=== PATIENT | female | born 1975 ===

== ENCOUNTER 2019-02-10 07:05 | Day surgery (SDC) | payer OTHER ==
[~2019-02-10] VITALS: Ht 175.3 cm; Wt 95.3 kg
[2019-02-10] VITALS (7 sets, daily range): BP systolic 145–154; BP diastolic 83–98
[~2019-02-10 07:05] MED LIST: FLOVENT2 PUFF1 INH; LYRICA75 M1 ORAL; SINGULAIR10 MG ORAL; WELLBUTRIN XL150 MG ORAL; ceFAZolin 1gm IVPB IVPB ONE; celeBREX 200mg Cap **SURGERY PATIENTS ONLY ORAL ONE; oxyCONTIN 20mg tab ORAL ONE
[2019-02-10] MEDS ORDERED: Tylenol #3 tab (300mg/30mg) ORAL PRN (07:15)
[2019-02-10] MEDS ORDERED: D5 1/2NS 1,000 ML IV SCH (07:15)
[2019-02-10] MEDS ORDERED: HYDROcodone/Acetamin 5/325 tab ORAL PRN (07:15)
[2019-02-10] MEDS ORDERED: HYDROmorphone 1mg/ml Carpuject SUBQ PRN (07:15)
--- NOTE | 2019-02-10 07:15 | Pre-Procedure Note/Attestation ---
Pre-Procedure Note/Attestation Complete Prior to Procedure Planned Procedure: left Procedure Narrative: knee arthroscopy, possible synovectomy, possible chondroplasty Indications for Procedure Pre-Operative Diagnosis: left knee internal derangment Attestation I attest that I discussed the nature of the procedure; its benefits; risks and complications; and alternatives (and the risks and benefits of such alternatives ), prior to the procedure, with the patient (or the patient's legal wine sales representative). I attest that, if there was a reasonable possibility of needing a blood transfusion, the patient (or the patient's legal wine sales representative) was given the [facility] standardized written summary, pursuant to the [place] Blood Safety Act ([place] Health and Safety Code # 1645, as amended). I attest that I re-evaluated the patient just prior to the surgery and that there has been no change in the patient's H&P, except as documented below: Sudhakar Sotomayor MD Feb 10, 2019 07:14
--- NOTE | 2019-02-10 07:15 | Operative Note - PDOC ---
Operative Note Operative Note Pre-op Diagnosis: left knee internal derangment Procedure: see op report Post-op Diagnosis: same as pre-op plus Operative Findings: consistent w/pre-op dx studies Anesthesia: general Specimen: none Complications: none Condition: stable Estimated Blood Loss: none Implant(s) used?: No Sudhakar Sotomayor MD Feb 10, 2019 07:15
[2019-02-10] MEDS ORDERED: PROAIR HFA8.5 GM INH (08:00)
[2019-02-10] MEDS ORDERED: oxyCONTIN 20mg tab ORAL ONE (08:04)
[2019-02-10] MEDS ORDERED: celeBREX 200mg Cap **SURGERY PATIENTS ONLY ORAL ONE (08:05)
--- NOTE | 2019-02-10 10:11 | Anethesia Preoperative Eval ---
Anesthesia Pre-op PMH/ROS General Date of Evaluation: Feb 10, 2019 Anesthesiologist: Ramiro ASA Score: ASA 2 Mallampati Score Class I : Soft palate, uvula, fauces, pillars visible Class II: Soft palate, uvula, fauces visible Class III: Soft palate, base of uvula visible Class IV: Only hard plate visible Mallampati Classification: Class III Surgeon: Bran Diagnosis: Left knee internal derangement Surgical Procedure: Left knee arthroscopy Anesthesia History: none Family History: no anesthesia problems Allergies: Coded Allergies: NUT - UNSPECIFIED (Verified Allergy, Severe, "throat closes -up", 02/09/19) all kinds of nuts as per patient PINEAPPLE (Verified Adverse Reaction, Intermediate, throat closes-up, 02/09) Medications: see eMAR Patient NPO?: Yes NPO Date: Feb 09, 2019 NPO Time: 22:00 Past Medical History Cardiovascular: Denies: HTN, CAD, [place], valve dz, arrhythmia, other Pulmonary: Reports: asthma; Denies: COPD, CHRISTY, other Gastrointestinal/Genitourinary: Denies: GERD, CRI, ESRD, other Neurologic/Psychiatric: Reports: depression/anxiety, other - fibromyalgia; Denies: dementia, CVA, TIA Endocrine: Denies: DM, hypothyroidism, steroids, other HEENT: Denies: cataract (L), cataract (R), glaucoma, MINTO (L), MINTO (R), other Hematology/Immune: Denies: anemia, DVT, bleeding disorder, other Musculoskeletal/Integumentary: Denies: OA, RA, DJD, DDD, edema, other Other: obesity PSxH Narrative: Left oophorectomy, BTL, B CTR, B UNL, right ovarian cystectomy Anesthesia Pre-op Phys. Exam Physician Exam Last Vital Signs Date Time Temp Pulse Resp B/P (MAP) Pulse Ox O2 Delivery O2 Flow Rate FiO2 02/10/19 07:55 Room Air 02/10/19 07:49 97.7 84 18 152/90 98 Constitutional: NAD Cardiovascular: RRR Respiratory: CTA Airway Exam Mallampati Score: Class III MO: limited Neck: short, obese TMD: 2FB ROM: limited Anesthesia Pre-op A/P Labs see chart Studies Pre-op Studies: EKG - sr Risk Assessment & Plan Assessment: ASA II Plan: GA Status Change Before Surgery: No Pre-Antibiotics Drug: Ancef 2g Given Within 1 Hr of Incision: Yes Claire Jewell MD Feb 10, 2019 10:11
[2019-02-10] MEDS ORDERED: Propofol 200mg/20ml IV ONE (10:45)
[2019-02-10] MEDS ORDERED: fentaNYL 100 mcg/2 mL IV ONE (10:45)
[2019-02-10] MEDS ORDERED: Lidocaine 1% MPF 10mg/ml 5ml ONE (10:45)
[2019-02-10] MEDS ORDERED: Midazolam 2mg/2ml Inj ONE (10:45)
[2019-02-10] MEDS ORDERED: EPINEPHrine 1mg/1ml Amp ONE (10:46)
[2019-02-10] MEDS ORDERED: Ketorolac 30mg Inj ONE (10:46)
[2019-02-10] MEDS ORDERED: Dexamethasone 4mg/ml vial ONE (10:46)
[2019-02-10] MEDS ORDERED: Kenalog-40 1ml Vial ONE (10:46)
[2019-02-10] MEDS ORDERED: Bupivacaine 0.25% Inj 30ml INJ ONE (10:46)
[2019-02-10] MEDS ORDERED: Duramorph PF 5mg/10ml amp ONE (10:46)
[2019-02-10] MEDS ORDERED: Metoclopramide 10mg/2ml Inj ONE (10:46)
[2019-02-10] MEDS ORDERED: Lidocaine 1% 10mg/ml/Epi 0.005mg/ml 30ml vial INJ ONE (10:47)
[2019-02-10] MEDS ORDERED: Duramorph PF 5mg/10ml amp EPIDUR ONE (10:59)
[2019-02-10] MEDS ORDERED: LR 1000ml 1,000 ML IVLG SCH (10:59)
[2019-02-10] MEDS ORDERED: NS Irrig 4000ml IRRIG ONE (10:59)
[2019-02-10] MEDS ORDERED: fentaNYL 100 mcg/2 mL IV PRN (11:00)
[2019-02-10] MEDS ORDERED: DiphenhydrAMINE 50mg/ml Inj IVP PRN (11:00)
[2019-02-10] MEDS ORDERED: Metoclopramide 10mg/2ml Inj IVP PRN (11:00)
[2019-02-10] MEDS ORDERED: Hydromorphone 0.5mg/0.5ml inj IVP PRN (11:00)
--- NOTE | 2019-02-10 11:45 | 48 Hour Post Anesthesia Eval ---
Post Anesthesia Evaluation Procedure: LEft knee arthroscopy Date of Evaluation: Feb 10, 2019 Airway: patent Nausea: No Vomiting: No Hydration Status: adequate Cardiopulmonary Status: at baseline Mental Status/LOC: patient returned to baseline Post-Anesthesia Complications: 0 Follow-up care needed: ready to discharge Claire Jewell MD Feb 10, 2019 11:45
--- NOTE | 2019-02-10 11:45 | Immediate Post-Op Evaluation ---
Immediate Post-Op Evalulation Immediate Post-Op Evalulation Procedure: LEft knee arthroscopy Date of Evaluation: Feb 10, 2019 Time of Evaluation: 11:47 IV Fluids: 500 Blood Products: 0 Estimated Blood Loss: min Urinary Output: 0 Blood Pressure Systolic: 152 Blood Pressure Diastolic: 96 Pulse Rate: 92 Respiratory Rate: 18 O2 Sat by Pulse Oximetry: 100 Temperature (Fahrenheit): 97.3 Pain Score (1-10): 0 Nausea: No Vomiting: No Complications 0 Patient Status: awake, reacts, patent, none Hydration Status: adequate Drug: Ancef 2g Given Within 1 Hr of Incision: Yes Claire Jewell MD Feb 10, 2019 11:45
--- NOTE | 2019-02-10 19:45 | Operative Note - Dictated ---
DATE OF OPERATION: 02/10/2019 PREOPERATIVE DIAGNOSES: Left knee patellofemoral chondral damage. POSTOPERATIVE DIAGNOSES: 1. Left knee grade 2 patellofemoral chondral damage. 2. Hypertrophic synovial tissue, medial and lateral patellofemoral compartment. PROCEDURE: 1. Left knee diagnostic arthroscopy and chondroplasty patellofemoral compartment. 2. Medial, lateral, patellofemoral compartment synovectomy and excision of fat pad. SURGEON: Sudhakar Sotomayor M.D. ANESTHESIA: Local. INDICATION FOR PROCEDURE: The patient is a pleasant female who has had progressive left knee pain, difficulty with extension that continued. She had an MRI, which showed some chondral damage in the patellofemoral compartment. She failed conservative treatment, elected to undergo left knee diagnostic arthroscopy, possible medial and lateral meniscectomy. Risks, limitations, expectations complications of procedure were discussed in detail. All questions addressed. DESCRIPTION OF PROCEDURE: After informed consent was obtained, the patient was taken to the operating room. The patient was placed under general anesthesia. The left leg was prepped and draped in a sterile manner. Time-out was performed. An inferolateral stab incision was then made. Trocar was introduced into the patellofemoral compartment. There is significant hypertrophic fat pad. It appeared to be medial plica making visualization very difficult. Therefore, medial working portal was established. Shaver was then placed in the patellofemoral compartment. Synovectomy and excision of the fat pad was performed. Once that was done, medial gutter was entered, was free from meniscal chondral damage. Medial compartment was entered, free from meniscal chondral damage. The ACL was probed noted to be intact. Excision of the fat pad, synovium, and ligament . It was extended through intercondylar notch and lateral compartment. Lateral compartment was entered free of meniscal chondral damage. Camera was repositioned in to patellofemoral compartment and there was noted to be grade 2 chondral damage in the medial patellar facet as well as grade 1 chondral damage in the trochlear groove. Gentle chondroplasty was performed. Once that was completed, the instruments were removed. Portal sites was closed with 3-0 Monocryl sutures. Steri-Strips and a sterile dressing were applied. The patient was awoken and taken to recovery room with stable vital signs. ESTIMATED BLOOD LOSS: None. COMPLICATIONS: None. SPECIMENS: None. Sudhakar Sotomayor M.D. DR: Katherine JOB#: [id number] CC:
== END 2019-02-10 13:30 | disposition home or self-care (01) ==
LOC: SUR 07:05
DX: M67.262 Synovial hypertrophy, not elsewhere classified, left lower leg (principal); F32.9 Major depressive disorder, single episode, unspecified; F41.9 Anxiety disorder, unspecified; M79.7 Fibromyalgia; Z91.018 Allergy to other foods; Z90.721 Acquired absence of ovaries, unilateral; E66.9 Obesity, unspecified; Z68.31 Body mass index [BMI] 31.0-31.9, adult
CPT/HCPCS: 29876; 97161; J0690; J1100; J1885; J2250; J2405; J2704; J2765; J3010; J3301; J3490; 94003; 94150